=== PATIENT | female | born 1990 | race Caucasian/White ===

== ENCOUNTER 2020-08-18 08:32 | Outpatient (REF) | payer OTHER, SELFPAY ==
[2020-08-19 11:33] LABS: BV Int Neg Control Negative (Negative); BV Int Pos Control Positive (Positive)
[2020-08-19 13:52] LABS: C. trachomatis RNA TMA NOT DETECTED (NOT DETECTED); N. gonorrhoeae RNA TMA NOT DETECTED (NOT DETECTED)
[2020-08-25 16:07] LABS: HPV 16 RNA NOT DETECTED (NOT DETECTED); HPV mRNA E6/E7 rflx Detected (Not Detected)
== END 2020-08-18 08:33 | disposition home or self-care (01) ==
LOC: HO.LAB 08:32
PROVIDERS: PCP Family Medicine; Referring Provider Family Medicine; Visit Provider Obstetrics & Gynecology
DX: Z12.4 Encounter for screening for malignant neoplasm of cervix (principal); Z11.3 Encounter for screening for infections with a predominantly sexual mode of transmission
CPT/HCPCS: 36415; 87480; 87491; 87510; 87591; 87624; 87625; 87660; 88142

== ENCOUNTER 2020-08-30 11:01 | Outpatient (REF) | payer OTHER, SELFPAY ==
--- NOTE | 2020-08-30 11:04 | US_ITS ---
EXAMINATION: PELVIC ULTRASOUND CLINICAL INFORMATION: Pelvic and perineal pain COMPARISON: Previous exam June 2017 TECHNIQUE: Transabdominal and transvaginal pelvic ultrasound was performed. Transvaginal exam was performed for better visualization of the uterus and ovaries. FINDINGS: The uterus is anteverted and measures 11.1 x 3.2 x 6.5 cm in sagittal, AP and transverse dimension. There is an IUD seen in the uterus. This may be within the endometrial canal in the lower uterine segment. The IUD appears anterior to the endometrium more superiorly in the anterior body and fundus of the uterus/perforate the anterior endometrial surface and be located in the myometrium. The right limb of the T of the IUD appears to extend to the peripheral myometrium or subserosal surface of the uterus. No definite perforation outside the uterus is appreciated. The left limb of the T of the IUD cannot be identified. Endometrial thickness measures 0.3 cm. There is a small amount of fluid seen in the endometrial canal. The ovaries are normal-appearing. The right ovary measures 2.9 x 2.1 x 2.2 cm and the left ovary measures 4.5 x 2.4 x 1.6 cm. There is no fluid in the pelvis. US/US transvaginal IMPRESSION: IUD in the uterus. The IUD appears anterior to the endometrium in the anterior fundus and body of the uterus. The right limb of the horizontal T portion of the IUD extends into the peripheral myometrium. This does not appear to perforate the uterus. The left limb of the horizontal T portion of the IUD is not identified Appearance is similar to June 2017 exam. Report will be communicated by the [facility] work flow magnet maker Judith Palomo.
--- NOTE | 2020-08-30 11:04 | US_ITS ---
EXAMINATION: PELVIC ULTRASOUND CLINICAL INFORMATION: Pelvic and perineal pain COMPARISON: Previous exam June 2017 TECHNIQUE: Transabdominal and transvaginal pelvic ultrasound was performed. Transvaginal exam was performed for better visualization of the uterus and ovaries. FINDINGS: The uterus is anteverted and measures 11.1 x 3.2 x 6.5 cm in sagittal, AP and transverse dimension. There is an IUD seen in the uterus. This may be within the endometrial canal in the lower uterine segment. The IUD appears anterior to the endometrium more superiorly in the anterior body and fundus of the uterus/perforate the anterior endometrial surface and be located in the myometrium. The right limb of the T of the IUD appears to extend to the peripheral myometrium or subserosal surface of the uterus. No definite perforation outside the uterus is appreciated. The left limb of the T of the IUD cannot be identified. Endometrial thickness measures 0.3 cm. There is a small amount of fluid seen in the endometrial canal. The ovaries are normal-appearing. The right ovary measures 2.9 x 2.1 x 2.2 cm and the left ovary measures 4.5 x 2.4 x 1.6 cm. There is no fluid in the pelvis. US/US pelvic complete IMPRESSION: IUD in the uterus. The IUD appears anterior to the endometrium in the anterior fundus and body of the uterus. The right limb of the horizontal T portion of the IUD extends into the peripheral myometrium. This does not appear to perforate the uterus. The left limb of the horizontal T portion of the IUD is not identified Appearance is similar to June 2017 exam. Report will be communicated by the [facility] work flow trimming press operator Judith Palomo.
== END 2020-08-30 11:02 | disposition home or self-care (01) ==
LOC: HO.US 11:01
PROVIDERS: PCP Family Medicine; Visit Provider Obstetrics & Gynecology
DX: R10.2 Pelvic and perineal pain (principal)
CPT/HCPCS: 76830; 76856

== ENCOUNTER 2020-09-19 08:34 | Outpatient (REF) | payer OTHER, SELFPAY | END 2020-09-19 08:35 | disposition home or self-care (01) | LOC: HO.LAB 08:34 | PROVIDERS: PCP Family Medicine; Visit Provider Obstetrics & Gynecology | DX: N87.0 Mild cervical dysplasia (principal); R87.810 Cervical high risk human papillomavirus (HPV) DNA test positive | CPT/HCPCS: 57454; 81025; 88300; 88305 ==

== ENCOUNTER → 2020-09-26 14:17 | Outpatient (BNVA) | payer OTHER, SELFPAY | PROVIDERS: PCP Family Medicine; Visit Provider Obstetrics & Gynecology ==

== ENCOUNTER → 2020-10-24 09:01 | Outpatient (BNVA) | payer OTHER, SELFPAY | PROVIDERS: Visit Provider Obstetrics & Gynecology | DX: T83.32XD Displacement of intrauterine contraceptive device, subsequent encounter (principal) | CPT/HCPCS: 99212 ==

== ENCOUNTER 2020-11-02 06:11 | Day surgery (SDC) | payer OTHER, SELFPAY ==
[2020-10-26 11:41] VITALS: BMI 21.9
--- NOTE | 2020-11-01 09:05 | HO.ANESPROP2 ---
HPI - Anesthesia Eval Consult details Narrative: 30yo F for Hysteroscopic IUD Removal and Insertion PMFSH Past Medical History Medical History (Updated 10/26/20 @ 11:40 by Ella Rasmussen) History of asthma Migraine with aura Surgical History Surgical History H/O breast augmentation History of tubal ligation Social History Social History Alcohol intake: never Smoking Status: Never smoker Sexual orientation: Straight/Heterosexual Gender identity: female Meds Allergies Allergy/AdvReac Type Severity Reaction Status Date / Time No Known Allergies Allergy Verified 11/02/20 06:14 Exam Exam Date and Time: November 01, 2020 0905 Height,Weight and Vital Signs: Height 5 ft Weight 50.802 kg Assessment and Plan Assessment Anesthesia Assessment: Chart Reviewed
[2020-11-02 06:20] VITALS: BP 106/71; PULSE 71; RESP 16; TEMP 36.9; O2SAT 98
[2020-11-02] MEDS: Lactated Ringers 1,000 ML 100 ML IVCONT (06:33)
[2020-11-02 06:56] LABS: HCG Quantitative < 2 mIU/mL
--- NOTE | 2020-11-02 07:13 | MHC.SHP ---
Pre-Procedural Eval Section A The patient is an INPATIENT: No Changes since office visit: No Cold of Flu in the past 2 weeks, No New Medical Problems, No Changes in Medication and No Patient answered all questions The History & Physical has been completed within 30 days and I have reviewed it.: Yes Section B Chief Complaint: contraception Allergies: Allergies Allergy/AdvReac Type Severity Reaction Status Date / Time No Known Allergies Allergy Verified 11/02/20 06:14 Plan I have reviewed the history and physical and performed a pertinent physical examination on my patient. No changes have occurred unless specified.
--- NOTE | 2020-11-02 07:20 | P.CONAN_ITS ---
FORM[facility]LY [facility] Past Medical History Medical History (Updated 10/26/20 @ 11:40 by Ella Rasmussen) History of asthma Migraine with aura Surgical History Surgical History H/O breast augmentation History of tubal ligation Social History Social History Are you a primary behavioral health care coordinator to a significant other at home: No Do you presently have visiting nurse or other home services: No Alcohol intake: never Smoking Status: Never smoker Advance Directives: No Advance Directives Information Provided: No Advance Directives on File: No Sexual orientation: Straight/Heterosexual Gender identity: female Meds Allergies Allergy/AdvReac Type Severity Reaction Status Date / Time No Known Allergies Allergy Verified 11/02/20 06:14 Active Medications: Current Medications Generic Name Dose Route Start Last Admin Trade Name Freq PRN Reason Stop Dose Admin Lactated Ringer's 1,000 mls @ 100 mls/hr 11/02/20 06:15 11/02/20 06:33 Lr IVCONT 100 mls/hr .Q10H [place] Administration Exam Exam Date and Time: November 02, 2020 0720 Height,Weight and Vital Signs: Height 5 ft Weight 50.802 kg Last Vital Signs Temp 98.5 F 11/02/20 06:20 Pulse 71 11/02/20 06:20 Resp 16 11/02/20 06:20 BP 106/71 11/02/20 06:20 Pulse Ox 98 11/02/20 06:20 Pertinent Lab Results Pertinent Lab Results: Laboratory Tests 11/02/20 06:21 Beta HCG, Quant < 2 Airway Mallampati Class: II TM Dist: >3cm Neck ROM: Full Heart: RRR Lungs: CTA
[2020-11-02 08:10] VITALS: BP 120/71; PULSE 74; RESP 16; TEMP 36.4; O2SAT 100
[2020-11-02 08:15] VITALS: BP 112/70; PULSE 61; RESP 16; O2SAT 100
--- NOTE | 2020-11-02 08:15 | W.PM.OPN ---
Operative Note Operative Note Date of Service: 11/02/20 Narrative: Pre-operative Diagnosis: IUD strings lost Post-operative Diagnosis: same Procedures performed: hysteroscopic intrauterine device removal; intrauterine device insertion Ms. Chance is a 30 year old with Mirena IUD strings missing. Her IUD was placed in 2014 and is due for removal and insertion of a new device. Pelvic US confirmed intrauterine location of her IUD. She presents today for hysteroscopic IUD removal and Mirena IUD insertion. Surgical Risks: The patient was informed of the risks and benefits of a hysteroscopy and IUD insertion. Risks included but were not limited to bleeding, infection, injury to the vulva, vagina, or cervix, and uterine perforation with possible need for further surgery. The patient expressed understanding of the risks involved, all questions were answered, and the patient consented to the procedure. The patient was taken to the operating room where a time out was confirmed to confirm correct patient and correct procedure. Adequate general anesthesia was established. The patient was then positioned on the operating table in the dorsal lithotomy position with her legs supported using stirrups. All pressure points were padded and a warm blanket was placed to maintain control of core body temperature. The patient was then prepped and draped in the usual sterile fashion. A straight catheter was inserted into the bladder and 100mL of urine was obtained. A bivalve speculum was then inserted into the vagina. The anterior lip of the cervix was visualized and grasped using a single tooth tenaculum. A paracervical block was performed with 10cc 1% lidocaine injected at 4 o'clock and 10cc 1% lidocaine injected at 7 o'clock after aspiration was performed to confirm location not in a blood vessel. The cervix was then adequately dilated using Braden dilators for the introduction of the hysteroscope. The hysteroscope was introduced under direct visualization using normal saline solution as the distending media. The hysteroscope was advanced to the fundus and the entire uterine cavity was inspected. The Mirena IUD was visualized at the fundus and the hysteroscopic graspers were inserted through the scope and advanced to grasp the IUD. The hysteroscope was then removed from the uterus with the IUD still in the grasper. The IUD was discarded. The uterus was sounded to 8cm. The Mirena IUD was inserted in routine fashion. The strings were trimmed to 2cm. The tenaculum was removed from the anterior lip of the cervix and good hemostasis was noted. The speculum was removed from the vagina. The patient tolerated the procedure well. At the end of the procedure, all needle, sponge, and instrument counts were noted to be correct x2. The patient was transferred to the recovery room in stable condition.
[2020-11-02 08:20] VITALS: BP 103/67; PULSE 68; RESP 18; O2SAT 100
[2020-11-02 08:25] VITALS: BP 106/76; PULSE 52; RESP 17; O2SAT 100
[2020-11-02] MEDS: Ketorolac Tromethamine 30 MG/ML VIAL IVPUSH (08:37)
[2020-11-02 08:40] VITALS: BP 108/73; PULSE 53; RESP 17; TEMP 36.8; O2SAT 100
--- NOTE | 2020-11-02 12:30 | HO.POSTANES ---
Post Anesthesia Evaluation Post Anesthesia Evaluation Vital Signs: Vital Signs Temp Pulse Resp BP Pulse Ox 11/02/20 08:40 98.3 F 53 17 108/73 100 11/02/20 08:25 52 17 106/76 100 11/02/20 08:20 68 18 103/67 100 11/02/20 08:15 61 16 112/70 100 11/02/20 08:10 97.5 F 74 16 120/71 100 11/02/20 06:20 98.5 F 71 16 106/71 98 Anesthesia: General Mental Status: Awake Pain Control: Satisfactory Nausea/Vomiting: None Hydration: Adequate Anesthesia-Related Issues: No Anes. Related Issues
== END 2020-11-02 09:11 | disposition home or self-care (01) ==
PROVIDERS: PCP Family Medicine; Visit Provider Obstetrics & Gynecology
PROC: 0UDB8ZX Extraction of Endometrium, Via Natural or Artificial Opening Endoscopic, Diagnostic (ICD-10-PCS; CPT 58558; principal; 2020-11-02 07:30)
DX: T83.32XA Displacement of intrauterine contraceptive device, initial encounter (principal); Y76.1 Therapeutic (nonsurgical) and rehabilitative obstetric and gynecological devices associated with adverse incidents; Y92.9 Unspecified place or not applicable; Z98.51 Tubal ligation status; G43.109 Migraine with aura, not intractable, without status migrainosus
CPT/HCPCS: 58562; 58300; 36415; 84702; J1885; J2405; J3010

== ENCOUNTER 2022-05-06 12:22 | Outpatient (REF) | payer OTHER, SELFPAY ==
--- NOTE | ~2022-05-06 | XR_ITS ---
EXAMINATION: XR CHEST CLINICAL INFORMATION: Shortness of breath COMPARISON: None TECHNIQUE: 2 views of the chest were obtained. FINDINGS: No significant abnormality is noted involving the heart, lungs, mediastinum, bony thorax or soft tissues. XR/XR chest 2V IMPRESSION: Unremarkable examination.
[2022-05-06 12:44] LABS: MANUAL DIFF FLAG NO
[2022-05-06 13:59] LABS: Basophils Absolute Auto 0.1 X10*3/uL (0.0-0.2); Basophils Percent Auto 0.6 % (0-2); Eosinophils Absolute Auto 0.2 X10*3/uL (0.0-0.4); Eosinophils Percent Auto 1.9 % (0-4); Hematocrit 40.8 % (37.0-47.0); Hemoglobin 13.4 g/dl (12.0-16.0); Imm Gran Abs Auto 0.01 X10*3/uL (0.00-0.03); Imm Gran Pct Auto 0.1 % (0.0-0.4); Lymphocytes Absolute Auto 1.7 X10*3/uL (1.2-4.9); Mean Corpuscular HGB Conc 32.8 g/dl (31.0-35.0); Mean Corpuscular Hemoglobin 29.5 pg (27.0-33.0); Mean Corpuscular Volume 89.9 fL (80.0-98.0); Monocytes Absolute Auto 0.6 X10*3/uL (0.1-1.2); Monocytes Percent Auto 6.7 % (2-11); Neutrophils Absolute Auto 5.7 x10*3/uL (2.0-8.3); Neutrophils Percent Auto 69.7 % (45-73); Platelet Count 270 X10*3/uL (160-400); Red Blood Count 4.54 X10*6/uL (4.20-5.50); Red Cell Distribution Width 12.7 % (11.0-16.0); White Blood Count 8.2 X10*3/uL (4.8-10.8)
[2022-05-06 14:54] LABS: Alanine Aminotransferase 15 U/L (0-31); Albumin Level 4.4 g/dL (3.5-5.0); Alkaline Phosphatase 43 U/L (39-117); Anion Gap 14 (12-20); Aspartate Amino Transferase 16 U/L (5-31); Bilirubin Total 0.4 mg/dL (0.0-1.0); Blood Urea Nitrogen 14 mg/dL (9-16); Calcium 9.3 mg/dL (8.4-10.2); Carbon Dioxide 26 mmol/L (22-29); Chloride 105 mmol/L (96-108); Estimated Glomerular Filt Rate > 60; Glucose Random 76 mg/dL (60-115); Iron 171 mcg/dL (30-160); Percent Iron Saturation 53 % (15-50); Potassium 4.1 mmol/L (3.3-5.1); Sodium 141 mmol/L (135-145); Total Iron Binding Capacity 323 mcg/dL (228-428); Total Protein 7.2 g/dL (6.5-8.0); Unsaturated Iron Binding 152 ug/dL
[2022-05-06 15:04] LABS: TSH reflex Free T4 0.99 uIU/mL (0.32-4.0)
== END 2022-05-06 12:23 | disposition home or self-care (01) ==
LOC: HO.XRAY 12:22
PROVIDERS: PCP Family Medicine; Visit Provider Family Medicine
DX: Z00.00 Encounter for general adult medical examination without abnormal findings (principal); R06.02 Shortness of breath
CPT/HCPCS: 36415; 71046; 80053; 83540; 84443; 85025